=== PATIENT | female | born 1950 | race Caucasian/White ===

== ENCOUNTER 2022-04-08 09:01 | Outpatient (CLI) | payer MEDICARE, BC, SELFPAY ==
[2022-04-08 09:17] LABS: Albumin* 4.5 g/dL (3.3-5.0); Chloride* 103 mmol/L (96-114); Potassium* 4.2 mmol/L (3.6-5.1); Sodium* 141 mmol/L (135-149)
[2022-04-08 09:19] LABS: Cholesterol* 247 mg/dL (90-199)
[2022-04-08 09:20] LABS: Alanine Aminotransferase* 19 U/L (4-35); Alkaline Phosphatase* 85 U/L (40-150); Aspartate Amino Transferase* 21 U/L (12-35); Bilirubin Total* 0.5 mg/dL (0.1-1.5); Blood Urea Nitrogen* 23 mg/dL (7-30); Calcium* 9.2 mg/dL (8.4-10.6); Carbon Dioxide* 28 mmol/L (20-32); Creatinine* 0.6 mg/dL (0.5-1.5); Estimated Glomerular Filt Rate 96 ml/min; Glucose* 96 mg/dL (60-115); HDL Cholesterol* 57 mg/dL (>=50); LDL Cholesterol Calculated 160 mg/dL (<100); Total Protein* 6.9 g/dL (6.0-8.3); Triglycerides* 151 mg/dL (40-149)
== END 2022-04-08 09:02 | disposition home or self-care (01) ==
PROVIDERS: PCP Family Medicine; Visit Provider Family Medicine
DX: E78.5 Hyperlipidemia, unspecified (principal); I10 Essential (primary) hypertension; R53.83 Other fatigue; E66.9 Obesity, unspecified; F41.9 Anxiety disorder, unspecified
CPT/HCPCS: 80053; 80061

== ENCOUNTER 2022-04-30 11:06 | Outpatient (CLI) | payer MEDICARE, BC, SELFPAY ==
--- NOTE | 2022-04-30 11:30 | CRLHL7_ITS ---
For Patients: As a result of the Century Cures Act, medical imaging exams and procedure reports are released immediately into your electronic medical record. You may view this report before your referring provider. If you have questions, please contact your health care provider. BILATERAL SCREENING MAMMOGRAM WITH COMPUTER-AIDED DETECTION AND TOMOSYNTHESIS TECHNIQUE: CC and MLO views were obtained. These mammographic images have been obtained using full-field digital technique. These mammographic images were interpreted with the benefit of computer-aided detection. Breast tomosynthesis was used in this interpretation. COMPARISON FILM: 09/13/17, 05/28/16, 05/27/15. FINDINGS: There are scattered areas of fibroglandular density. IMPRESSION: There is no radiographic evidence for malignancy. ASSESSMENT: BI-RADS Category 2: Benign RECOMMENDATION: Routine screening mammogram in 1 year. A lay language report of this examination will be provided to the patient. LISANDRO CORTES M.D. Diagnostic/Nuclear Medicine Radiologist [email or web address] Transcribed: 3:[address]/Dictated by: Lisandro Cortes MD @ 04/30/2022 12:10:00 PM (Electronically Signed)
== END 2022-04-30 11:07 | disposition home or self-care (01) ==
LOC: MAMMO 11:09
PROVIDERS: PCP Family Medicine; Visit Provider Family Medicine
DX: Z12.31 Encounter for screening mammogram for malignant neoplasm of breast (principal)
CPT/HCPCS: 77063; 77067

== ENCOUNTER 2023-04-19 07:25 | Outpatient (CLI) | payer MEDICARE, BC, SELFPAY | END 2023-04-19 07:26 | disposition home or self-care (01) | LOC: NFLDREF 04-21 07:14 | PROVIDERS: PCP Family Medicine; Referring Provider Family Medicine; Visit Provider Family Medicine | DX: E78.5 Hyperlipidemia, unspecified (principal); I10 Essential (primary) hypertension | CPT/HCPCS: 80053; 80061 ==

== ENCOUNTER 2023-05-12 14:07 | Outpatient (CLI) | payer MEDICARE, BC, SELFPAY ==
--- NOTE | 2023-05-12 14:20 | CRLHL7_ITS ---
For Patients: As a result of the Cures Act, medical imaging exams and procedure reports are released immediately into your electronic medical record. You may view this report before your referring provider. If you have questions, please contact your health care provider. BILATERAL SCREENING MAMMOGRAM WITH COMPUTER-AIDED DETECTION AND TOMOSYNTHESIS TECHNIQUE: CC and MLO views were obtained. These mammographic images have been obtained using full-field digital technique. These mammographic images were interpreted with the benefit of computer-aided detection. Breast tomosynthesis was used in this interpretation. COMPARISON FILM: 04/30/22, 07/12/18, 09/13/17. FINDINGS: There are scattered areas of fibroglandular density. IMPRESSION: There is no radiographic evidence for malignancy. ASSESSMENT: BI-RADS Category 2: Benign RECOMMENDATION: Routine screening mammogram in 1 year. A lay language report of this examination will be provided to the patient. LISANDRO CORTES M.D. Diagnostic/Nuclear Medicine Radiologist [email or web address] MARIBEL:[email or web address] Transcribed: 05/13/2023, 3:[address]/Dictated by: Lisandro Cortes MD @ 05/13/2023 10:16:00 AM (Electronically Signed)
== END 2023-05-12 14:08 | disposition home or self-care (01) ==
PROVIDERS: PCP Family Medicine; Visit Provider Family Medicine
DX: Z12.31 Encounter for screening mammogram for malignant neoplasm of breast (principal)
CPT/HCPCS: 77063; 77067

== ENCOUNTER 2024-04-20 07:40 | Outpatient (CLI) | payer MEDICARE, BC, SELFPAY ==
--- OUTSIDE RECORDS SUMMARY | 2024-04-20 14:09 | XMS_ITS | Clinical Summary ---
Author Organization [facility] Address [address] [place] [address] Care Team Providers Care Microbiology Supervisor Name Role Phone Elsewhere, Pcp Primary Care Provider Unavailabl e Source Comments Patient records contain information from all sites at [facility]. For routine questions regarding patient records, call [phone] during business hours, M-F 8:00 AM - 5:00 PM Central Time. Record requests for emergency care only can be directed to [phone] at any time.[facility] Allergies Active Allergy Reactions Criticality Noted Date Comments Nut - Unspecified Anaphylaxis,Swelling High 02/08/20 07 Filbert nuts Pollen Extracts Other (see comments) 05/14/2022 Seasonal allergies (sinus congestion, itchy eyes) Sulfa (Sulfonamide Antibiotics) Anaphylaxis,Hives (Reselect Reaction),Shortness of breath (Reselect Reaction),Rash,Edema (Reselect Reaction) High 02/07/2007 swelling, Shortness of breath, rash Medications * This document contains information received from the source organization and may not represent a complete record from that organization. acetaminophen (for_TYLENOL) 500 mg tablet Take 2 tablets by mouth as needed. 09/03/19 17 Active lhicbicou-XT-o cetaminophen 25-5-325 mg tablet Take 2 capsules by mouth at bedtime. Each capsule contains: diphenhydramine 25 mg, acetaminophen 325 mg, phenylephrine 5 mg 09/03/19 17 Active ibuprofen (for_ADVIL,MOT RIN) 200 mg tablet Take 4 tablets by mouth as needed. 09/03/19 17 Active loperamide (IMODIUM A-D) 2 mg tablet Take 2 tablets by mouth daily as needed. as needed for IBS - estimates she takes one dose every 2-3 months. 09/03/19 Active multivitamin tablet Take 1 tablet by mouth every morning. 09/05/19 17 Active atorvastatin (LIPITOR) 20 mg tablet Take 20 mg by mouth daily. 04/15/20 Active cannabidiol, CBD, (CANNABIDIOL ORAL) Take 2 capsules by mouth every morning. 2- 15mg gel tabs every morning for pain 01/14/20 Active Immunizations Name Administration Dates Next Due H1N1 All Forms 06/21/2009 HZV (ZOSTAVAX) 05/29/2014 Influenza Split 03/31/2016 Influenza high dose QV(65 ye ars or older) (PF) 03/19/2022,03/02/2020 Influenza, Quadrivalent, Adj uvanted, Preservative Free 04/16/2021 Influenza, Seasonal, Injectable 03/26/2014,04/11 PCV13 05/20/2016 PPSV23 09/13/2017 RZV (SHINGRIX) 04/06/2019,12/28/2018 Tdap 05/29/2014 influenza trivalent high dos e (HD)(PF) 03/14/2019,03/25/2018,03/04/2017,2015,03/31/2016 influenza trivalent vaccine (6 months and older)(PF) 04/03/2015,04/21/2012,03/19/2010 Social History Tobacco Use Types Packs/Day Years Used Date Smoking Tobacco: Former Cigarettes Passive Smoke Exposure: Past Smokeless Tobacco: Never Tobacco Cessation:Counseling Given: Not Answered Comments:Smoked in the 60s when in college Alcohol Use Standard Drinks/Week Comments Yes 1 (1 standard drink = 0.6 oz pur e alcohol) Humiliation, Afraid, Rape, and Kick questionnair e Answer Date Recorded Within the last year, have y ou been afraid of your partner or ex-partner? No 05/14/2022 Within the last year, have y ou been humiliated or emotionally abused in other ways by your partner or ex-partner? No Within the last year, have y ou been kicked, hit, slapped, or otherwise physically hurt by your partner or ex-partner? No 05/14/2022 Within the last year, have y ou been raped or forced to have any kind of sexual activity by your partner or ex-partner? No 05/14/2022 Social Connection and Isolat ion Panel [NHANES] Answer Date Recorded In a typical week, how many times do you talk on the phone with family, friends, or neighbors? More than three times a week 05/14/2022 How often do you get togethe r with friends or relatives? Patient declined 05/14/2022 How often do you attend chur or advent services? 1 to 4 times per year 05/14/2022 Do you belong to any clubs o r organizations such as mosque groups, unions, fraternal or athletic groups, or school groups? Patient declined 05/14/2022 How often do you attend meet ings of the clubs or organizations you belong to? Patient declined 05/14/2022 Are you , , di vorced, , never , or living with a partner? 05/14/2022 AUDIT-C Answer Date Recorded Q1: How often do you have a drink containing alc ohol? Monthly or less 05/14/2022 Q2: How many drinks containi ng alcohol do you have on a typical day when you are drinking? 1 or 2 05/14/2022 Q3: How often do you have si x or more drinks on one occasion? Never 05/14/2022 Overall Financial Resource Strain (CARDIA) Answe r Date Recorded How hard is it for you to pa y for the very basics like food, housing, medical care, and heating? Not hard at all 05/14/2022 [facility] - Occupational Stress Questionnaire Answer Date Recorded Do you feel stress - tense, restless, nervous, or anxious, or unable to sleep at night because your mind is troubled all the time - these days? Very much 05/14/2022 Exercise Vital Sign Answer Date Recorde d On average, how many days pe r week do you engage in moderate to strenuous exercise (like a brisk walk)? 1 day 05/14/2022 On average, how many minutes do you engage in exercise at this level? 30 min 05/14/2022 Hunger Vital Sign Answer Date Recorded Within the past 12 months, y ou worried that your food would run out before you got the money to buy more. Never true 05/14/20 22 Within the past 12 months, t he food you bought just didn't last and you didn't have money to get more. Never true 05/14/2022 PRAPARE - Transportation Answer Date Re corded In the past 12 months, has l ack of transportation kept you from medical appointments or from getting medications? No 06/2021 In the past 12 months, has l ack of transportation kept you from meetings, work, or from getting things needed for daily living? No 05/14/2022 Housing Stability Vital Sign Answer Amauri e Recorded In the last 12 months, was t here a time when you were not able to pay the mortgage or rent on time? No 05/14/2022 In the last 12 months, how many places have you lived? 1 05/14/2022 In the last 12 months, was t here a time when you did not have a steady place to sleep or slept in a longterm (including now)? No 05/14/2022 Nutrition Answer Date Recorded On average, how many serving s of fruits and vegetables do you eat per day (serving size is equal to 1 cup or approximately the size of a tennis ball)? 2-3 05/14/2022 Dental Answer Date Recorded Dental: Regular Dentist Yes 05/14/20 Employment Answer Date Recorded Employment status Retired 05/14/2022 Education Answer Date Recorded What is the highest level of school you have completed or the highest degree you have received? Bachelor's degree (e.g., BA, AB, BS) 05/14/2022 Comments No Sex and Gender Information Value Date Recorded Sex Assigned at Female 11/03/2017 9:18 AM CDT Legal Sex Female 10:19 AM PICKER TENDER HELPER Gender Identity Not on file Sexual Orientation Straight 11/03/2017 9: 18 AM CDT Last Filed Vital Signs Vital Sign Reading Time Taken Comments Blood Pressure 124/67 09/04/2016 10:09 AM CDT NIBP - Value from [employer]. Pulse 93 09/04/2016 10:09 AM CDT Value from [employer]. Temperature - - Respiratory Rate 16 09/04/2016 10:1 1 AM CDT Value from [employer]. Oxygen Saturation - - Inhaled Oxygen Concentration - - Weight 84.5 kg (186 lb 4.6 oz) 05/18/2022 12:26 PM PICKER TENDER HELPER Height 160.3 cm (5' 3.11) 05/18/2022 1 2:26 PM PICKER TENDER HELPER Body Mass Index 32.88 05/18/2022 12:26 PM PICKER TENDER HELPER Plan of Treatment Health Maintenance Due Date Last Done Comments Bone Density Scan (Osteoporosis Screen) 1950 CT Colonography 1950 Cologuard 1950 Colonoscopy 1950 Colorectal Cancer Surveillance 1950 Hepatitis C Screening 1950 Mammogram 1950 Fasting Glucose for Diabetes Screening 09/04/2019 09/03/2016, 02/28/2015 Depression Screening (Annual PHQ-2) 06/14/2023 Fall Risk Screen (Annual) 06/14/2023 COVID-19 Vaccine ( season) 2024 03/12/2023, 03/19/2022, 03/10/2021, Additional history exists Influenza Vaccine (#1) 2024 , 03/19/2022, 04/16/2021, Additional history exists DTaP,Tdap,and Td Vaccines (2 - Td or Tdap) 05/29/2024 05/29/2014 Pneumococcal vaccine (65+ years) Completed 09/13/2017, 05/20/2016 Zoster Vaccines Completed 04/06/2019, 12/12, 05/29/2014 IPV Vaccines Aged Out No longer eligi ble based on patient's age to complete this topic Medical Devices Implanted Type Area Hop Weigher Device Identifier Shelf Expiration Date Model / Serial / Lot Hardware E.G. Pins/Screws/Turner s Hardware e.g. pins/screws /rods Right: Toes Description:Screw placed in right big toe (approx 1989's) Conversions - Default Historical Implant Device Implanted:09/02 (Quantity not on file) Hardware e.g. pins/screws /rods Right: Foot Description:Body Location - Foot R. Device Status Text - Hardware. Triathlon-Tibia l Baseplate [place] #3 - Coulter [id number] Implanted:Qty: 1 on 02/27/2015 Knee Implant Other/Legacy - See Implant Description Frank Description:Device Manufactu rer - [place] [employer].. Body Location - Other. Left. Device Status Text - KNEE [id number]. Triathlon-Garcia la Asymmetric X3 [id number] - Coulter [id number] Implanted:Qty: 1 on 02/27/2015 Knee Implant Other/Legacy - See Implant Description Frank Description:Device Manufactu rer - [place] [employer].. Body Location - Other. Left. Device Status Text - KNEE [id number]. Triathlon-Femor al Cemented #4 Lt - Coulter [id number] Implanted:Qty: 1 on 02/27/2015 Knee Implant Other/Legacy - See Implant Description Frank Description:Device Manufactu rer - [place] [employer].. Body Location - Other. Left. Device Status Text - KNEE [id number]. Triathlon-Inser t X3 Tib 9mm #3 - Coulter [id number] Implanted:Qty: 1 on 02/27/2015 Knee Implant Other/Legacy - See Implant Description Frank Description:Device Manufactu rer - [place] [employer].. Body Location - Other. Left. Device Status Text - KNEE [id number]. Triathlon-Femor al Modular Peg - Coulter [id number] Implanted:Qty: 1 on 02/27/2015 Knee Implant Other/Legacy - See Implant Description [place] Description:Device Manufactu rer - Frank Kiara.. Body Location - Other. Left. Device Status Text - KNEE [id number]. Insert Empower Ps Sz 4 14mm Rt - Coulter [id number] Implanted:Qty: 1 on 09/02/2016 Knee Implant Other/Legacy - See Implant Description Other/Legacy - See Implant Description Description:Device Manufactu rer [employer]. Body Location - Other. Right. Device Status Text - KNEE [id number]. Femur Ps Nonporous Sz 4 Rt - Coulter [id number] Implanted:Qty: 1 on 09/02/2016 Knee Implant Other/Legacy - See Implant Description Other/Legacy - See Implant Description Description:Device Manufactu rer [employer]. Body Location - Other. Right. Device Status Text - KNEE [id number]. Baseplate Nonporous Sz 4 Rt - Coulter [id number] Implanted:Qty: 1 on 09/02/2016 Knee Implant Other/Legacy - See Implant Description Other/Legacy - See Implant Description Description:Device Manufactu [employer]. Body Location - Other. Right. Device Status Text - KNEE [id number]. Patella Domed Tri-Peg Sz 29 8mm - Coulter [id number] Implanted:Qty: 1 on 09/02/2016 Knee Implant Other/Legacy - See Implant Description Other/Legacy - See Implant Description Description:Device Manufactu rer [employer]. Body Location - Other. Right. Device Status Text - KNEE [id number]. Cement Bone Large - Coulter [id number] Implanted:Qty: 1 on 02/27/2015 [facility] Other Frank Description:Device Manufactu rer - Frank Kiara.. Device Status Text - MISCOTHER-2840. Cement Bone Small - Coulter [id number] Implanted:Qty: 1 on 02/27/2015 [facility] Other Frank Description:Device Manufactu rer - [place] [employer].. Device Status Text - MISCOTHER-2841. Cement Bone Small - Coulter [id number] Implanted:Qty: 1 on 09/02/2016 [facility] Other Frank Description:Device Manufactu rer - Frank Kiara.. Device Status Text - MISCOTHER-2841. Cement Bone Large - Coulter [id number] Implanted:Qty: 1 on 09/02/2016 [facility] Other [place] Description:Device Manufactu rer - Frank Kiara.. Device Status Text - MISCOTHER-2840. Conversions - Default Historical Implant Device Implanted:09/02 (Quantity not on file) Ocular Lens Right: Eye Description:Body Location - Eye R. and left eye. Device Status Text - OculrLens. Procedures Procedure Name Priority Date/Time Associated Diagnosis Comments ELECTROLYTE (CHEM 4) PANEL, S/P Routine 09/03/2016 4:20 AM CDT from Last 3 Months or Most Recently Relevant to Health Maintenance Results * Electrolyte (Chem 4) Panel (09/03/2016 4:20 AM CDT) Chloride, S 103 98 - 107 MMOL/L [facility] HX Bicarbonate, P/S 27 22 - 29 MMOL/L [facility] eGFR-Black/Afri can Guamanian >60 >60 ML/MIN/BSA [facility] BUN (Blood Urea Nitrogen), S 11 6 - 21 MG/DL [facility] Sodium, S 141 135 - 145 MMOL/L [facility] Potassium, S 4.9 3.6 - 5.2 MMOL/L [facility] Creatinine 0.6 0.6 - 1.1 MG/DL [facility] eGFR Non-Black/Afric an Guamanian >60 >60 ML/MIN/BSA [facility] Anion Gap 11 7 - 15 [facility] Glucose, S 130 70 - 140 MG/DL [facility] 09/03/2016 4:20 AM CDT 09/03/2016 4:20 AM CDT Fide Ibanez APRN, C.N.P. LAB BLOOD ADD-ON Fin al Result [facility] [address] [place], [place] [address] from Last 3 Months or Most Recently Relevant to Health [place] [address] MEDICARE Care Teams Microbiology Supervisor Relationship Specialty Start Date End Date Elsewhere, Pcp PCP - General Internal Medicine 05/14/22
--- OUTSIDE RECORDS SUMMARY | 2024-04-20 14:09 | XMS_ITS ---
Author Organization [facility] Address [address] [place] [address] Care Team Providers Care Senior Reliability Engineer Name Role Phone Unavailable Unavailable Unavailable Surgery Details Not on file Complications Check Surgery Details section. Procedure Estimated Blood Loss Check Surgery Details section. Procedure Findings Check Surgery Details section. Procedure Specimens Taken Check Surgery Details section.
--- OUTSIDE RECORDS SUMMARY | 2024-04-20 14:09 | XMS_ITS | Referral Summary ---
Author Organization [facility] Address [address] [place] [address] Care Team Providers Care Fire Truck Driver Name Role Phone Elsewhere, Pcp Primary Care Provider Unavailabl e Source Comments Patient records contain information from all sites at [facility]. For routine questions regarding patient records, call [phone] during business hours, M-F 8:00 AM - 5:00 PM Central Time. Record requests for emergency care only can be directed to [phone] at any time.[facility] Allergies Active Allergy Reactions Criticality Noted [...] by mouth as needed. 09/03/19 17 Active jbjxpievv-WA-u cetaminophen 25-5-325 mg tablet Take 2 capsules [...] How often do you attend chur or presybeterian services? 1 to 4 times per year 05/14/2022 Do you belong to any clubs o r organizations such as faith groups, unions, fraternal or athletic groups, or [...] and heating? Not hard at all 05/14/2022 [facility] - Occupational Stress [...] place to sleep or slept in a mcfp (including now)? No 05/14/2022 Nutrition Answer Date [...] AM CDT Legal Sex Female 10:19 AM GLASS BLOWING LATHE OPERATOR Gender Identity Not on file Sexual Orientation [...] (186 lb 4.6 oz) 05/18/2022 12:26 PM GLASS BLOWING LATHE OPERATOR Height 160.3 cm (5' 3.11) 05/18/2022 1 2:26 PM GLASS BLOWING LATHE OPERATOR Body Mass Index 32.88 05/18/2022 12:26 PM GLASS BLOWING LATHE OPERATOR Plan of Treatment Not on file Medical Devices Implanted Type Area Security Compliance Engineer Device Identifier Shelf Expiration Date Model / Serial / Lot Hardware E.G. Pins/Screws/Turner s Hardware e.g. pins/screws /rods Right: Toes Description:Screw placed in right big toe (approx ) Conversions - Default Historical Implant Device Implanted:09/02 (Quantity not on file) Hardware e.g. pins/screws /rods Right: Foot Description:Body Location - Foot R. Device Status Text - Hardware. Triathlon-Tibia l Baseplate [place] #3 - Coulter [id number] Implanted:Qty: 1 on 02/27/2015 Knee Implant Other/Legacy - See Implant Description Frank Description:Device Manufactu rer - Frank Kiara.. Body Location - Other. Left. Device Status Text - KNEE [id number]. Triathlon-Garcia la Asymmetric X3 [id number] - Coulter [id number] Implanted:Qty: 1 on 02/27/2015 Knee Implant Other/Legacy - See Implant Description [place] Description:Device Manufactu rer - Frank Kiara.. Body Location - Other. Left. Device Status Text - KNEE [id number]. Triathlon-Femor al Cemented #4 Lt - Coulter [id number] Implanted:Qty: 1 on 02/27/2015 Knee Implant Other/Legacy - See Implant Description Frank Description:Device Manufactu rer - [place] Kiara.. Body Location - Other. Left. Device Status Text - KNEE [id number]. Triathlon-Inser t X3 Tib 9mm #3 - Coulter [id number] Implanted:Qty: 1 on 02/27/2015 Knee Implant Other/Legacy - See Implant Description Frank Description:Device Manufactu rer - [place] Kiara.. Body Location - Other. Left. Device Status Text - KNEE [id number]. Triathlon-Femor al Modular Peg - Coulter [id number] Implanted:Qty: 1 on 02/27/2015 Knee Implant Other/Legacy - See Implant Description [place] Description:Device Manufactu rer - Frank Kiara.. Body Location - Other. Left. Device Status Text - KNEE IMP-[id number]. Insert Empower Ps Sz 4 14mm Rt - Coulter [id number] Implanted:Qty: 1 on 09/02/2016 Knee Implant Other/Legacy - See Implant Description Other/Legacy - See Implant Description Description:Device Manufactu rer - [employer]. Body Location - Other. Right. Device Status Text - KNEE [id number]. Femur Ps Nonporous Sz 4 Rt - Coulter [id number] Implanted:Qty: 1 on 09/02/2016 Knee Implant Other/Legacy - See Implant Description Other/Legacy - See Implant Description Description:Device Manufactu rer - [employer]. Body Location - Other. Right. Device Status Text - KNEE [id number]. Baseplate Nonporous Sz 4 Rt - Coulter [id number] Implanted:Qty: 1 on 09/02/2016 Knee Implant Other/Legacy - See Implant Description Other/Legacy - See Implant Description Description:Device Manufactu [employer]. Body Location - Other. Right. Device Status Text - KNEE [id number]. Patella Domed Tri-Peg Sz 29 8mm - Coulter [id number] Implanted:Qty: 1 on 09/02/2016 Knee Implant Other/Legacy - See Implant Description Other/Legacy - See Implant Description Description:Device Manufactu [employer]. Body Location - Other. Right. Device Status Text - KNEE [id number]. Cement Bone Large - Coulter [id number] Implanted:Qty: 1 on 02/27/2015 [facility] Other [place] Description:Device Manufactu rer - Frank Kiara.. Device Status Text - MISCOTHER-2840. Cement Bone Small - Coulter [id number] Implanted:Qty: 1 on 02/27/2015 Misc Other Frank Description:Device Manufactu rer - Frank Kiara.. Device Status Text - MISCOTHER-2841. Cement Bone Small - Coulter [id number] Implanted:Qty: 1 on 09/02/2016 Misc Other Frank Description:Device Manufactu rer - [place] Kiara.. Device Status Text - MISCOTHER-2841. Cement Bone Large - Coulter [id number] Implanted:Qty: 1 on 09/02/2016 Mis Other [place] Description:Device Manufactu rer - Frank Kiara.. Device [...] Chloride, S 103 98 - 107 MMOL/L [facility] HX Bicarbonate, P/S 27 22 - 29 MMOL/L [facility] eGFR-Black/Afri can Singaporean >60 >60 ML/MIN/BSA [facility] BUN (Blood Urea Nitrogen), S 11 6 - 21 MG/DL [facility] Sodium, S 141 135 - 145 MMOL/L [facility] Potassium, S 4.9 3.6 - 5.2 MMOL/L [facility] Creatinine 0.6 0.6 - 1.1 MG/DL [facility] eGFR Non-Black/Afric an Singaporean >60 >60 ML/MIN/BSA [facility] Anion Gap 11 7 - 15 [facility] Glucose, S 130 70 - 140 MG/DL [facility] 09/03/2016 4:20 AM CDT 09/03/2016 4:20 AM CDT us Fide Ibanez APRN, C.N.P. LAB BLOOD ADD-ON Fin al Result [facility] [address] [place] [address], [facility] from Last 3 Months or Most Recently Relevant to Health Maintenance Insurance [facility] MEDICARE Care Teams Fire Truck Driver Relationship Specialty Start Date End Date Elsewhere, Pcp PCP - General Internal Medicine 05/14/22
== END 2024-04-20 07:41 | disposition home or self-care (01) ==
LOC: NFLDREF 14:08
PROVIDERS: PCP Family Medicine; Referring Provider Family Medicine; Visit Provider Family Medicine
DX: E78.5 Hyperlipidemia, unspecified (principal)
CPT/HCPCS: 80053; 80061

== ENCOUNTER 2024-05-02 07:49 | Outpatient (CLI) | payer MEDICARE, BC, SELFPAY ==
--- OUTSIDE RECORDS SUMMARY | 2024-05-02 07:52 | XMS_ITS | Referral Summary ---
Author Organization [facility] Address [address] [place] [address] Care Team Providers Care Legal Recovery Specialist Name Role Phone Elsewhere, Pcp Primary Care Provider Unavailabl e Source Comments Patient records contain information from all sites at [facility]. For routine questions regarding patient records, call [phone] during business hours, M-F 8:00 AM - 5:00 PM Central Time. Record requests for emergency care only can be directed to [phone] at any time.[facility] Allergies Active Allergy Reactions Criticality Noted Date [...] by mouth as needed. 09/03/19 17 Active yzjeovass-RD-y cetaminophen 25-5-325 mg tablet Take 2 capsules [...] How often do you attend chur or alevism services? 1 to 4 times per year 05/14/2022 Do you belong to any clubs o r organizations such as jainism groups, unions, fraternal or athletic groups, or [...] and heating? Not hard at all 05/14/2022 [facility] - Occupational Stress [...] place to sleep or slept in a chcf (including now)? No 05/14/2022 Nutrition Answer Date [...] AM CDT Legal Sex Female 10:19 AM OBIEE ARCHITECT Gender Identity Not on file Sexual Orientation [...] (186 lb 4.6 oz) 05/18/2022 12:26 PM OBIEE ARCHITECT Height 160.3 cm (5' 3.11) 05/18/2022 1 2:26 PM OBIEE ARCHITECT Body Mass Index 32.88 05/18/2022 12:26 PM OBIEE ARCHITECT Plan of Treatment Not on file Medical Devices Implanted Type Area Laborer Ammunition Assembly Device Identifier Shelf Expiration Date Model / Serial / Lot Hardware E.G. Pins/Screws/Turner s Hardware e.g. pins/screws /rods Right: Toes Description:Screw placed in right big toe (approx ) Conversions - Default Historical Implant Device Implanted:09/02 (Quantity not on file) Hardware e.g. pins/screws /rods Right: Foot Description:Body Location - Foot R. Device Status Text - Hardware. Triathlon-Tibia l Baseplate [place] #3 - Coulter [id number] Implanted:Qty: 1 on 02/27/2015 Knee Implant Other/Legacy - See Implant Description [place] Description:Device Manufactu rer - [place] Kiara.. Body Location - Other. Left. Device Status Text - KNEE [id number]. Triathlon-Garcia la Asymmetric X3 [id number] - Coulter [id number] Implanted:Qty: 1 on 02/27/2015 Knee Implant Other/Legacy - See Implant Description [place] Description:Device Manufactu rer - Frank Kiara.. Body Location - Other. Left. Device Status Text - KNEE [id number]. Triathlon-Femor al Cemented #4 Lt - Coulter [id number] Implanted:Qty: 1 on 02/27/2015 Knee Implant Other/Legacy - See Implant Description [place] Description:Device Manufactu rer - [place] Kiara.. Body Location - Other. Left. Device Status Text - KNEE [id number]. Triathlon-Inser t X3 Tib 9mm #3 - Coulter [id number] Implanted:Qty: 1 on 02/27/2015 Knee Implant Other/Legacy - See Implant Description [place] Description:Device Manufactu rer - [place] Kiara.. Body Location - Other. Left. Device Status Text - KNEE [id number]. Triathlon-Femor al Modular Peg - Coulter [id number] Implanted:Qty: 1 on 02/27/2015 Knee Implant Other/Legacy - See Implant Description Frank Description:Device Manufactu rer - [place] Kiara.. Body Location - Other. Left. Device Status Text - KNEE [id number]. Insert Empower Ps Sz 4 14mm Rt - Coulter [id number] Implanted:Qty: 1 on 09/02/2016 Knee Implant Other/Legacy - See Implant Description Other/Legacy - See Implant Description Description:Device Manufactu rer - [employer]. Body Location - Other. Right. Device Status Text - KNEE [id number]. Femur Ps Nonporous Sz 4 Rt - Coulter [id number] Implanted:Qty: 1 on 09/02/2016 Knee Implant Other/Legacy - See Implant Description Other/Legacy - See Implant Description Description:Device Manufactu rer - [employer]. Body Location - Other. Right. Device Status Text - KNEE [id number]. Baseplate Nonporous Sz 4 Rt - Coulter [id number] Implanted:Qty: 1 on 09/02/2016 Knee Implant Other/Legacy - See Implant Description Other/Legacy - See Implant Description Description:Device Manufactu [employer]. Body Location - Other. Right. Device Status Text - KNEE [id number]. Patella Domed Tri-Peg Sz 29 8mm - Coulter [id number] Implanted:Qty: 1 on 09/02/2016 Knee Implant Other/Legacy - See Implant Description Other/Legacy - See Implant Description Description:Device Manufactu [employer]. Body Location - Other. Right. Device Status Text - KNEE [id number]. Cement Bone Large - Coulter [id number] Implanted:Qty: 1 on 02/27/2015 Mis Other [place] Description:Device Manufactu rer - Frank Kiara.. Device Status Text - MISCOTHER-2840. Cement Bone Small - Coulter [id number] Implanted:Qty: 1 on 02/27/2015 Misc Other Frank Description:Device Manufactu rer - [place] Kiara.. Device Status Text - MISCOTHER-2841. Cement Bone Small - Coulter [id number] Implanted:Qty: 1 on 09/02/2016 Misc Other [place] Description:Device Manufactu rer - [place] Kiara.. Device Status Text - MISCOTHER-2841. Cement Bone Large - Coulter [id number] Implanted:Qty: 1 on 09/02/2016 Mis Other Frank Description:Device Manufactu rer - Frank [...] Chloride, S 103 98 - 107 MMOL/L [facility] HX Bicarbonate, P/S 27 22 - 29 MMOL/L [facility] eGFR-Black/Afri can Burundian >60 >60 ML/MIN/BSA [facility] BUN (Blood Urea Nitrogen), S 11 6 - 21 MG/DL [facility] Sodium, S 141 135 - 145 MMOL/L [facility] Potassium, S 4.9 3.6 - 5.2 MMOL/L [facility] Creatinine 0.6 0.6 - 1.1 MG/DL [facility] eGFR Non-Black/Afric an Burundian >60 >60 ML/MIN/BSA [facility] Anion Gap 11 7 - 15 [facility] Glucose, S 130 70 - 140 MG/DL [facility] 09/03/2016 4:20 AM CDT 09/03/2016 4:20 AM CDT us Fide Ibanez APRN, C.N.P. LAB BLOOD ADD-ON Fin al Result [facility] [address] [place] [address], [facility] from Last 3 Months or Most Recently Relevant to Health Maintenance [facility] Care Teams Legal Recovery Specialist Relationship Specialty Start Date End Date Elsewhere, Pcp PCP - General Internal Medicine 05/14/22
--- OUTSIDE RECORDS SUMMARY | 2024-05-02 07:52 | XMS_ITS ---
Author Organization [facility] Address [address] [place] [address] Care Team Providers Care Gps Field Data Collector Name Role Phone Unavailable Unavailable Unavailable Surgery Details Not on file Complications Check Surgery Details section. Procedure Estimated Blood Loss Check Surgery Details section. Procedure Findings Check Surgery Details section. Procedure Specimens Taken Check Surgery Details section.
--- OUTSIDE RECORDS SUMMARY | 2024-05-02 07:52 | XMS_ITS | Clinical Summary ---
Author Organization [facility] Address [address] [place] [address] Care Team Providers Care Health Evaluator Name Role Phone Elsewhere, Pcp Primary Care Provider Unavailabl e Source Comments Patient records contain information from all sites at [facility]. For routine questions regarding patient records, call [phone] during business hours, M-F 8:00 AM - 5:00 PM Central Time. Record requests for emergency care only can be directed to [phone] at any time.[facility] Allergies Active Allergy Reactions Criticality Noted Date [...] by mouth as needed. 09/03/19 17 Active cgdggyeyz-VH-i cetaminophen 25-5-325 mg tablet Take 2 capsules [...] How often do you attend chur or mosque services? 1 to 4 times per year 05/14/2022 Do you belong to any clubs o r organizations such as yarsanism groups, unions, fraternal or athletic groups, or [...] and heating? Not hard at all 05/14/2022 [facility] - [...] place to sleep or slept in a detention (including now)? No 05/14/2022 Nutrition Answer Date [...] AM CDT Legal Sex Female 10:19 AM DATA ACQUISITION TECHNICIAN Gender Identity Not on file Sexual Orientation [...] (186 lb 4.6 oz) 05/18/2022 12:26 PM DATA ACQUISITION TECHNICIAN Height 160.3 cm (5' 3.11) 05/18/2022 1 2:26 PM DATA ACQUISITION TECHNICIAN Body Mass Index 32.88 05/18/2022 12:26 PM DATA ACQUISITION TECHNICIAN Plan of Treatment Health Maintenance Due Date [...] this topic Medical Devices Implanted Type Area Bar Tacker Sewing Machine Device Identifier Shelf Expiration Date Model / Serial / Lot Hardware E.G. Pins/Screws/Turner s Hardware e.g. pins/screws /rods Right: Toes Description:Screw placed in right big toe (approx 1989's) Conversions - Default Historical Implant Device Implanted:09/02 (Quantity not on file) Hardware e.g. pins/screws /rods Right: Foot Description:Body Location - Foot R. Device Status Text - Hardware. Triathlon-Tibia l Baseplate [place] #3 - Coulter [id number] Implanted:Qty: 1 on 02/27/2015 Knee Implant Other/Legacy - See Implant Description [place] Description:Device Manufactu rer - Frank Kiara.. Body Location - Other. Left. Device Status Text - KNEE [id number]. Triathlon-Garcia la Asymmetric X3 [id number] - Coulter [id number] Implanted:Qty: 1 on 02/27/2015 Knee Implant Other/Legacy - See Implant Description Frank Description:Device Manufactu rer - [place] Kiara.. Body Location - Other. Left. Device Status Text - KNEE IMP-[id number]. Triathlon-Femor al Cemented #4 Lt - Coulter [id number] Implanted:Qty: 1 on 02/27/2015 Knee Implant Other/Legacy - See Implant Description [place] Description:Device Manufactu rer - Frank Kiara.. Body Location - Other. Left. Device Status Text - KNEE [id number]. Triathlon-Inser t X3 Tib 9mm #3 - Coulter [id number] Implanted:Qty: 1 on 02/27/2015 Knee Implant Other/Legacy - See Implant Description [place] Description:Device Manufactu rer - Frank Kiara.. Body Location - Other. Left. Device Status Text - KNEE IMP-[id number]. Triathlon-Femor al Modular Peg - Coulter [id number] Implanted:Qty: 1 on 02/27/2015 Knee Implant Other/Legacy - See Implant Description Frank Description:Device Manufactu rer - Frank Kiara.. Body Location - Other. Left. Device Status Text - KNEE IMP-[id number]. Insert Empower Ps Sz 4 14mm Rt - Coulter [id number] Implanted:Qty: 1 on 09/02/2016 Knee Implant Other/Legacy - See Implant Description Other/Legacy - See Implant Description Description:Device Manufactu rer [employer]. Body Location - Other. Right. Device Status Text - KNEE IMP-[id number]. Femur Ps Nonporous Sz 4 Rt - Coulter [id number] Implanted:Qty: 1 on 09/02/2016 Knee Implant Other/Legacy - See Implant Description Other/Legacy - See Implant Description Description:Device Manufactu rer [employer]. Body Location - Other. Right. Device Status Text - KNEE [id number]. Baseplate Nonporous Sz 4 Rt - Coulter [id number] Implanted:Qty: 1 on 09/02/2016 Knee Implant Other/Legacy - See Implant Description Other/Legacy - See Implant Description Description:Device Manufactu [employer]. Body Location - Other. Right. Device Status Text - KNEE [id number]. Patella Domed Tri-Peg Sz 29 8mm - Coulter [id number] Implanted:Qty: 1 on 09/02/2016 Knee Implant Other/Legacy - See Implant Description Other/Legacy - See Implant Description Description:Device Manufactu rer [employer]. Body Location - Other. Right. Device Status Text - KNEE [id number]. Cement Bone Large - Coulter [id number] Implanted:Qty: 1 on 02/27/2015 [facility] Other Frank Description:Device Manufactu rer - [place] Kiara.. Device Status Text - MISCOTHER-2840. Cement Bone Small - Coulter [id number] Implanted:Qty: 1 on 02/27/2015 [facility] Other [place] Description:Device Manufactu rer - Frank Kiara.. Device Status Text - MISCOTHER-2841. Cement Bone Small - Coulter [id number] Implanted:Qty: 1 on 09/02/2016 [facility] Other [place] Description:Device Manufactu rer - Frank Kiara.. Device Status Text - MISCOTHER-2841. Cement Bone Large - Coulter [id number] Implanted:Qty: 1 on 09/02/2016 [facility] Other Frank Description:Device Manufactu [...] S 103 98 - 107 MMOL/L [facility] HX Bicarbonate, P/S 27 22 - 29 MMOL/L [facility] eGFR-Black/Afri can Mosotho >60 >60 ML/MIN/BSA [facility] BUN (Blood Urea Nitrogen), S 11 6 - 21 MG/DL [facility] Sodium, S 141 135 - 145 MMOL/L [facility] Potassium, S 4.9 3.6 - 5.2 MMOL/L [facility] Creatinine 0.6 0.6 - 1.1 MG/DL [facility] eGFR Non-Black/Afric an Mosotho >60 >60 ML/MIN/BSA [facility] Anion Gap 11 7 - 15 [facility] Glucose, S 130 70 - 140 MG/DL [facility] 09/03/2016 4:20 AM CDT 09/03/2016 4:20 AM CDT Fide Ibanez APRN, C.N.P. LAB BLOOD ADD-ON Fin al Result [facility] [address] [place], [place] [address] from Last 3 Months or Most Recently Relevant to Health Maintenance Insurance [facility] MEDICARE Care Teams Health Evaluator Relationship Specialty Start Date End Date Elsewhere, Pcp PCP - General Internal Medicine 05/14/22
--- NOTE | 2024-05-02 09:16 | W.ANESCHARGE ---
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
--- NOTE | 2024-05-02 09:26 | W.ANESCHARGE ---
Anesthesia Charges Start Date/Time Anesthesia Start Date: 05/02/24 Anesthesia Start Time: 08:54 Stop Date/Time Anesthesia Stop Date: 05/02/24 Anesthesia Stop Time: 09:14 Summary Extremes of Age - Over 70 or under 1: MDA
== END 2024-05-02 07:50 | disposition home or self-care (01) ==
LOC: OP CLINIC 07:50
PROVIDERS: PCP Family Medicine; Visit Provider Surgery
DX: R13.10 Dysphagia, unspecified (principal); K44.9 Diaphragmatic hernia without obstruction or gangrene; K22.2 Esophageal obstruction
CPT/HCPCS: 00731; 43239; 88305; 99100; J2704

== ENCOUNTER 2024-05-16 08:50 | Outpatient (CLI) | payer MEDICARE, BC, SELFPAY ==
--- NOTE | 2024-05-16 09:15 | CRLHL7_ITS ---
For Patients: As a result of the Century Cures Act, medical imaging exams and procedure reports are released immediately into your electronic medical record. You may view this report before your referring provider. If you have questions, please contact your health care provider. BILATERAL SCREENING MAMMOGRAM WITH COMPUTER-AIDED DETECTION AND TOMOSYNTHESIS TECHNIQUE: CC and MLO views were obtained. These mammographic images have been obtained using full-field digital technique. These mammographic images were interpreted with the benefit of computer-aided detection. Breast Tomosynthesis was used in this interpretation. COMPARISON FILM: 05/12/23, 04/30/22, 09/13/17. FINDINGS: There are scattered areas of fibroglandular density. IMPRESSION: There is no radiographic evidence for malignancy. ASSESSMENT: BI-RADS Category 1: Negative RECOMMENDATION: Routine screening mammogram in 1 year. A lay language report of this examination will be provided to the patient. Chele Edmonds M.D. Diagnostic Radiologist [email or web address] SP/Dictated by: Chele Edmonds MD @ 05/17/2024 11:25:00 AM (Electronically Signed)
--- NOTE | 2024-05-16 09:45 | CRLHL7_ITS ---
For Patients: As a result of the Century Cures Act, medical imaging exams and procedure reports are released immediately into your electronic medical record. You may view this report before your referring provider. If you have questions, please contact your health care provider. DXA BONE MINERAL DENSITY STUDY Reason for exam: Screening. Current height (in): 62.5. Weight (lb): 183. Menopause age: 43. Ethnicity: White. 1. Have you had a previous hip or vertebral fracture? No. 2. Have you had any fractures during your adult life which did not result from significant trauma (e.g., auto accident)? Yes. 3. Did either of your parents have a hip fracture? No. 4. Do you smoke? No. 5. Have you ever taken Glucocorticoids? No. 6. Do you have rheumatoid arthritis? No. 7. Do you have secondary osteoporosis? No. 8. Do you drink 3 or more alcoholic drinks per day? No. 9. Are you being treated for osteoporosis? No. 10. Have you ever taken any of the following medications: Actonel, Evista, Fosamax, Miacalcin, Reclast, Boniva, Forteo, HRT (i.e., estrogen/hormone therapy), Protelos, Prolia, Vitamin D, Calcium, other ??? please specify. ANSWER: Yes, vitamin D, HRT (i.e., estrogen/hormone therapy), and calcium. 11. Do you have any of the following medical conditions: Anorexia or bulimia, asthma or emphysema, end stage renal disease, hyperparathyroidism, any seizure disorders, cancer, inflammatory bowel diseases, hysterectomy, other ??? please specify. ANSWER: Yes, inflammatory bowel disease. 12. What was your maximum height (inches)? 66. 13. Do you perform weight bearing exercise regularly? Yes. 14. Do you regularly consume dairy products? Yes. 15. Do you drink caffeinated beverages? Yes. 16. At what age did your period start? 13. 17. Are you premenopausal? No. 18. How many full-term pregnancies have you had? 2. 19. Have you ever missed your period for more than 6 months in a row (not including or menopause)? No. TECHNIQUE: Bone mineral density study was performed using the [employer]. FINDINGS: The results of the study expressed as bone mineral density (BMD) are as follows: Lumbar spine L1 to L3: BMD: 1.145 g/cm2. T-score: 1.2. Z-score: 3.4 Neck Left: BMD: 0.902 g/cm2. T-score: 0.5. Z-score: 2.5 Right: BMD: 0.876 g/cm2. T-score: 0.2. Z-score: 2.2 Total Left: BMD: 0.956 g/cm2. T-score: 0.1. Z-score: 1.8 Right: BMD: 0.983 g/cm2. T-score: 0.3. Z-score: 2.0 IMPRESSION: Normal bone density. *Comparison exams done prior to 11/2019 were performed on different unit, [facility]. Chele Edmonds M.D. Diagnostic Radiologist [email or web address] Transcribed: 12:49 p.mRubi moreno/Dictated by: Chele Edmonds MD @ 05/17/2024 8:22:00 AM (Electronically Signed)
== END 2024-05-16 08:51 | disposition home or self-care (01) ==
LOC: MAMMO 08:51
PROVIDERS: PCP Family Medicine; Visit Provider Family Medicine
DX: Z12.31 Encounter for screening mammogram for malignant neoplasm of breast (principal); Z13.820 Encounter for screening for osteoporosis; Z78.0 Asymptomatic menopausal state; R93.89 Abnormal findings on diagnostic imaging of other specified body structures
CPT/HCPCS: 77063; 77067; 77080

== ENCOUNTER 2024-10-19 08:14 | Outpatient (CLI) | payer MEDICARE, BC, SELFPAY | END 2024-10-19 08:15 | disposition home or self-care (01) | PROVIDERS: PCP Family Medicine; Referring Provider Family Medicine; Visit Provider Family Medicine | DX: E78.5 Hyperlipidemia, unspecified (principal); I10 Essential (primary) hypertension | CPT/HCPCS: 80048; 80053; 80061 ==

== ENCOUNTER 2024-11-14 07:43 | Outpatient (CLI) | payer MEDICARE, BC, SELFPAY | END 2024-11-14 07:44 | disposition home or self-care (01) | LOC: NFLDREF 11-16 09:07 | PROVIDERS: PCP Family Medicine; Referring Provider Family Medicine; Visit Provider Family Medicine | DX: I10 Essential (primary) hypertension (principal) | CPT/HCPCS: 80048 ==

== ENCOUNTER 2025-04-25 07:59 | Outpatient (CLI) | payer MEDICARE, BC, SELFPAY | END 2025-04-25 08:00 | disposition home or self-care (01) | LOC: NFLDREF 05-01 14:54 | PROVIDERS: PCP Family Medicine; Referring Provider Family Medicine; Visit Provider Family Medicine | DX: E78.5 Hyperlipidemia, unspecified (principal); I10 Essential (primary) hypertension | CPT/HCPCS: 80053; 80061 ==

== ENCOUNTER 2025-05-01 07:48 | Outpatient (CLI) | payer MEDICARE, BC, SELFPAY ==
--- NOTE | 2025-05-01 09:52 | P.ANES_ITS ---
Anesthesia Charges Start Date/Time Anesthesia Start Date: 05/01/25 Anesthesia Start Time: 09:00 Stop Date/Time Anesthesia Stop Date: 05/01/25 Anesthesia Stop Time: 09:50 Summary Extremes of Age - Over 70 or under 1: TRANSPORT RN Coding CPT Codes CPT Codes: ANES UPR LWR GI NDSC PX - 35830 ([id number]) P2 - PATIENT W/MILD SYST DISEASE, QX - TRANSPORT RN SVC W/ MD MED DIRECTION, QK - QUICK SERVICE TECHNICIAN 2-4 CNCRNT ANES PROC Additional Codes: Summary - Extremes of Age - Over 70 or under 1: TRANSPORT RN ([id number])
--- NOTE | 2025-05-01 09:52 | W.ANESCHARGE ---
Anesthesia Charges Start Date/Time Anesthesia Start Date: 05/01/25 Anesthesia Start Time: 09:00 Stop Date/Time Anesthesia Stop Date: 05/01/25 Anesthesia Stop Time: 09:50 Summary Extremes of Age - Over 70 or under 1: CUE SELECTOR Coding CPT Codes CPT Codes: ANES UPR LWR GI NDSC PX - 96913 ([id number]) P2 - PATIENT W/MILD SYST DISEASE, QX - CUE SELECTOR SVC W/ MD MED DIRECTION, QK - COUNSELOR NURSES' ASSOCIATION 2-4 CNCRNT ANES PROC Additional Codes: Summary - Extremes of Age - Over 70 or under 1: CUE SELECTOR ([id number])
--- NOTE | 2025-05-01 10:42 | P.ANES_ITS ---
Anesthesia Charges Start Date/Time Anesthesia Start Date: 05/01/25 Anesthesia Start Time: 09:00 Stop Date/Time Anesthesia Stop Date: 05/01/25 Anesthesia Stop Time: 09:50 Summary Extremes of Age - Over 70 or under 1: MDA Coding CPT Codes CPT Codes: ANES UPR LWR GI NDSC PX - 18599 ([id number]) P2 - PATIENT W/MILD SYST DISEASE, QK - STONECUTTER APPRENTICE HAND 2-4 CNCRNT ANES PROC, QX - CONDOMINIUM MANAGER SVC W/ MD MED DIRECTION Additional Codes: Summary - Extremes of Age - Over 70 or under 1: MDA ([id number])
--- NOTE | 2025-05-01 10:42 | W.ANESCHARGE ---
Anesthesia Charges Start Date/Time Anesthesia Start Date: 05/01/25 Anesthesia Start Time: 09:00 Stop Date/Time Anesthesia Stop Date: 05/01/25 Anesthesia Stop Time: 09:50 Summary Extremes of Age - Over 70 or under 1: MDA Coding CPT Codes CPT Codes: ANES UPR LWR GI NDSC PX - 97315 ([id number]) P2 - PATIENT W/MILD SYST DISEASE, QK - OPERATIONS ASST 2-4 CNCRNT ANES PROC, QX - ENTERPRISE ACCOUNT MANAGER SVC W/ MD MED DIRECTION Additional Codes: Summary - Extremes of Age - Over 70 or under 1: MDA ([id number])
== END 2025-05-01 07:49 | disposition home or self-care (01) ==
LOC: OP CLINIC 07:49
PROVIDERS: PCP Family Medicine; Visit Provider Surgery
DX: D12.3 Benign neoplasm of transverse colon (principal); D12.8 Benign neoplasm of rectum; Z86.0100 Personal history of colon polyps, unspecified; K22.2 Esophageal obstruction; K44.9 Diaphragmatic hernia without obstruction or gangrene
CPT/HCPCS: 00812; 00813; 43239; 45385; 99100; J2405; J2704; J3490

== ENCOUNTER 2025-05-29 16:28 | Outpatient (CLI) | payer MEDICARE, BC, SELFPAY ==
--- NOTE | 2025-05-29 17:00 | CRLHL7_ITS ---
For Patients: As a result of the Century Cures Act, medical imaging exams and procedure reports are released immediately into your electronic medical record. You may view this report before your referring provider. If you have questions, please contact your health care provider. INDICATION: BILATERAL SCREENING MAMMOGRAM, ASYMPTOMATIC 74 Y/O FEMALE COMPARISON: 05/16/2024, 05/12/2023, 04/30/2022 TECHNIQUE: Digital mammogram in CC and MLO projections including computer-aided detection (CAD) and tomosynthesis. BREAST COMPOSITION: There are scattered areas of fibroglandular density. FINDINGS: No suspicious findings. ASSESSMENT: BI-RADS 1 Negative RECOMMENDATION: Annual screening mammogram. A lay language report of this examination will be provided to the patient. Dictated by: Chele Edmonds MD @ 05/30/2025 10:50:30 (Electronically Signed)
== END 2025-05-29 16:29 | disposition home or self-care (01) ==
LOC: MAMMO 16:28
PROVIDERS: PCP Family Medicine; Visit Provider Family Medicine
DX: Z12.31 Encounter for screening mammogram for malignant neoplasm of breast (principal)
CPT/HCPCS: 77063; 77067